=== PATIENT | female | born 1940 | race Caucasian/White ===

== ENCOUNTER 2022-08-23 09:38 | Inpatient (IN) | payer OTHER, MEDICARE ==
[~2022-08-23] VITALS: Ht 185.4 cm; Wt 158.8 kg
[2022-08-23 09:46] VITALS: BP_SYST 109
--- NOTE | 2022-08-23 09:56 | NUR ---
Placed in room 1 . Placed on administrative volunteer, blood pressure machine and pulse oximeter. To gown for exam. Side rails up. Report given to
--- NOTE | 2022-08-23 09:56 | NUR ---
ER at bedside examining patient.
--- NOTE | 2022-08-23 09:57 | NUR ---
PT RETURNS FROM CT.
--- NOTE | 2022-08-23 10:04 | NUR ---
MINA 0700 BS upon arrival 104
[2022-08-23 10:38] LABS: BASOPHILS % (AUTO) 0.5 % (0.0-2.0); EOSINOPHILS # (AUTO) 0.2 K/uL (0.0-0.4); EOSINOPHILS % (AUTO) 3.6 % (0.0-4.0); HEMATOCRIT 47.3 % (36-48); HEMOGLOBIN 15.3 g/dL (12.0-16.0); LYMPHOCYTES # (AUTO) 0.8 K/uL (1.0-5.5); LYMPHOCYTES % (AUTO) 16.5 % (20.5-51.5); MEAN CORPUSCULAR HEMOGLOBIN 33 pg (27-31); MEAN CORPUSCULAR HGB CONC 32 % (32-36); MEAN CORPUSCULAR VOLUME 102 fL (79.0-98.0); MONOCYTES # (AUTO) 0.4 K/uL (0.0-1.0); MONOCYTES % (AUTO) 8.5 % (1.7-9.3); NEUTROPHILS # (AUTO) 3.3 K/uL (1.8-7.7); NEUTROPHILS % (AUTO) 70.9 % (40.0-70.0); PLATELET COUNT (AUTO) 117 K/uL (130-430); RED BLOOD CELL COUNT(AUTO) 4.62 MIL/uL (4.2-6.2); WHITE BLOOD COUNT (AUTO) 4.7 K/uL (4.8-10.8)
[2022-08-23] MEDS ORDERED: ASPIRIN 325 MG TABLET PO ONE (10:45)
[2022-08-23 10:47] LABS: ANION GAP 5 (5-15); CALCIUM 8.4 mg/dL (8.4-11.0); CHLORIDE 100 mmol/L (98-107); CREATININE 1.82 mg/dL (0.55-1.30); GLUCOSE 128 mg/dL (70-99); UREA NITROGEN, BLOOD 52 mg/dL (8-21)
[2022-08-23 10:49] LABS: INR 1.7 (0.8-1.2); PROTHROMBIN TIME 17.1 SECS (9.5-12.5)
[2022-08-23 10:53] LABS: ALANINE AMINOTRANSFERASE 27 U/L (12-78); ALBUMIN 1.7 g/dL (3.4-4.8); ASPARTATE AMINOTRANSFERASE 34 U/L (10-37); TOTAL BILIRUBIN 1.5 mg/dL (0.0-1.0)
[2022-08-23 10:57] LABS: ALCOHOL, BLOOD < 3 mg/dL (<10)
[2022-08-23 11:00] LABS: BILIRUBIN,URINE 2+ (NEGATIVE); BLOOD, URINE 3+ (NEGATIVE); CLARITY/URINE TURBID (CLEAR); COLOR,URINE BROWN (YELLOW); GLUCOSE,URINE NEGATIVE (NEGATIVE); KETONES,URINE TRACE (NEGATIVE); LEUKOCYTE ESTERASE ,URINE 2+ (NEGATIVE); NITRITE, URINE POSITIVE (NEGATIVE); PH,URINE 6.5 (5.0-8.0); PROTEIN URINE 3+ (NEGATIVE)
[2022-08-23 11:12] LABS: UROBILINOGEN,URINE >=8 (0.2-1.0)
[2022-08-23 11:14] LABS: BACTERIA,URINE MANY /HPF (None Seen); HYALINE CASTS, URINE 0-5 /LPF (None Seen); RBC,URINE >100 /HPF (0-3); WBC,URINE >100 /HPF (0-3)
[2022-08-23] MEDS ORDERED: NEU300 PO (11:20)
[2022-08-23] MEDS ORDERED: GLIM4TAB PO (11:20)
[2022-08-23] MEDS ORDERED: NITR-85 PO (11:20)
[2022-08-23] MEDS ORDERED: HYDR-4280 PO (11:20)
[2022-08-23] MEDS ORDERED: FURO-150 PO (11:20)
[2022-08-23] MEDS ORDERED: APIX5TAB PO (11:20)
[2022-08-23 11:21] LABS: BARBITURATE, URINE NEGATIVE (NEG <=200); BENZODIAZEPINE, URINE NEGATIVE (NEG <=150); CANNABINOID, URINE NEGATIVE (NEG <=50); COCAINE, URINE NEGATIVE (NEG <=150); METHAMPHETAMINES SCREEN,URINE NEGATIVE (NEG <=500); OPIATE, URINE POSITIVE (NEG <=100); PHENCYCLIDINE SCREEN,URINE NEGATIVE (NEG <=25); URINE AMPHETAMINE NEGATIVE (NEG <=500); URINE METHADONE NEGATIVE (NEG <=200); URINE OXYCODONE SCREEN NEGATIVE (NEG <=100); URINE PROPOXYPHENE SCREEN NEGATIVE (NEG <=300)
[2022-08-23 11:22] LABS: UR TRICYCLIC ANTIDEPRESSANTS NEGATIVE (NEG <=300)
[2022-08-23] MEDS ORDERED: cefTRIAXone 1 GM IVPB PREMIX 50 ML IV ONE (12:00)
[2022-08-23] MEDS ORDERED: FUROSEMIDE 20 MG/2 ML VIAL IVP ONE (12:15)
[2022-08-23 12:39] VITALS: BP_SYST 109
[2022-08-23] MEDS ORDERED: DEXTROSE 50% JECT 50 ML DISP.SYRIN IVP PRN (12:45)
[2022-08-23] MEDS ORDERED: DOCUSATE SODIUM 100 MG CAPSULE PO PRN (12:45)
[2022-08-23] MEDS ORDERED: NALOXONE HCL 0.4 MG/ML AMP (NARCAN) IVP PRN ×2 (12:45)
[2022-08-23] MEDS ORDERED: ONDANSETRON HCL 4 MG/2 ML VIAL IVP PRN (12:45)
[2022-08-23] MEDS ORDERED: ACETAMINOPHEN 325 MG TABLET PO PRN (12:45)
[2022-08-23] MEDS ORDERED: LORazepam 2 MG/ML VIAL IVP PRN (12:45)
[2022-08-23] MEDS ORDERED: MAGNESIUM SULFATE 50 ML IV PRN (12:45)
[2022-08-23] MEDS ORDERED: IPRATROPIUM/ALBUTEROL SULFATE 3 ML AMPUL.NEB (DUONEB) INH PRN (12:45)
[2022-08-23] MEDS ORDERED: INSULIN LISPRO SLIDING SCALE 100 UNITS/ML, 3 ML VIAL (humaLOG) SUBCUT PRN (12:45)
[2022-08-23] MEDS ORDERED: MUPIROCIN 2% TOPICAL OINTMENT 22 GM NS PRN (12:45)
[2022-08-23] MEDS ORDERED: POTASSIUM CHLORIDE 20 MEQ TAB.PRT.SR PO PRN (12:45)
[2022-08-23] MEDS ORDERED: ZOLPIDEM TARTRATE 5 MG TABLET PO PRN (12:45)
[2022-08-23] MEDS ORDERED: MORPHINE 2 MG/ML INJ. SYRINGE IVP PRN ×2 (12:45)
--- NOTE | 2022-08-23 13:48 | NUR ---
Patient will be admitted to care of DR MATHIAS. Admitted to TELE unit. Will go to room 104A. Belongings list completed. Complete and up to date summary report printed. SBAR report to be given at bedside with opportunity for questions.
--- NOTE | 2022-08-23 14:30 | NUR ---
Admission Pt came to floor via gurney from ED at 1255, report was given to Augustine propellant charge loader. Tele unit was applied on admission to floor. Received report from director fundraising at 1320. Pt was oriented to room and nursing procedures and questions/concerns were answered. Pt has call light within reach and bed in low position and bed alarm on. Side rails raised.
[2022-08-23 14:45] VITALS: BP_SYST 131
[2022-08-23 15:21] VITALS: BP_SYST 104
--- NOTE | 2022-08-23 15:30 | NUR ---
Note Pt's bilateral lower extremities were photographed and documented in chart. Hygiene care and linen changes done with OFFSET PRINTER and RN. Pt's son Richard was at bedside during admission assessment. Call light within reach.
--- NOTE | 2022-08-23 16:25 | NUR ---
NEURO CONSULT WITH DR Tori LI WAS TEXTED, RE: TIA.
[2022-08-23] MEDS: NACL 0.9% 1,000 ML IV SCH (17:10)
--- NOTE | 2022-08-23 19:00 | NUR ---
End of shift Pt sitting up in bed to eat her dinner. Pt was checked on q1' and PRN all shift for needs and care. Pt was maintained with safety precautions all shift. Pt next to nurses station for close observation. Pt's IV in LFA intact and patent infusing IVF's well. Pt has Pure wick for urine incontinence. Pt's bilateral lower extremities dressing CDI at this time and elevated on pillows. No needs noted. Tele unit attached and intact. Call light within reach. Pt has had O2 at 2L/nc all shift.
--- NOTE | 2022-08-23 19:30 | NUR ---
OPENING NOTE PT LYING IN BED AND EYES OPEN. THREE FAMILY MEMBERS ARE BEDSIDE. BREATHING EVEN AND NONLABORED VIA NASAL CANNULAR O2 2L. IV LFA PATENT AND SKIN ECCHYMOSIS. NO S/S ACUTE DISTRESS. REPORTED PAIN ON LEFT LEFT FOOT AND LEG PAIN 7/10. CAN'T TAKE MORPHINE DUE TO LOW BP. PT ASKED TYLENOL INSTEAD. SAFETY CHECKS IN PLACE. CALL LIGHT IN REACH. CONTINUE TO MONITOR
[2022-08-23 20:00] VITALS: BP_SYST 101
[2022-08-23] MEDS: GABAPENTIN 300 MG CAPSULE PO SCH (20:18)
[2022-08-23] MEDS: ACETAMINOPHEN 325 MG TABLET PO PRN (20:20)
[2022-08-23] MEDS: APIXABAN 2.5 MG TABLET PO SCH (20:21)
[2022-08-23 23:23] VITALS: BP_SYST 101
--- NOTE | 2022-08-23 23:40 | NUR ---
ROUNDING NOTE PT LYING IN BED AND EYES CLOSED. BREATHING EVEN AND NONLABORED. PUREWICK COLLECTING URINE. URINE COLOR JOLANTA. NO S/S OF DISTRESS. SAFETY CHECKS IN PLACE. CALL LIGHT IN REACH. CONTINUE TO MONITOR
[2022-08-24 00:36] VITALS: BP_SYST 115
[2022-08-24] MEDS: NACL 0.9% 1,000 ML IV SCH ×2 (03:03→06:43)
--- NOTE | 2022-08-24 04:30 | NUR ---
PAIN MEDICATION PT REPORTED PAIN 7/10 ON LEFT LEG. BP 115/71. STACY LUCAS ADMINISTERED MORPHINE 2mg IVF. WILL CONTINUE TO MONITOR BP.
--- NOTE | 2022-08-24 04:51 | NUR ---
NIH SCALE ASSESSMENT PT COOPERATIVELY PARTICIPATED NIH SCALE TEST. ONLY LOWER EXTREMITIES NO STRENGTH AGAINST GRAVITY DUE TO CHRONIC BILATERAL LOWER EXTREMITIES WEAKNESS AND DIABETIC ULCER. PT SAID SHE HAS BEEN BEDBOUND MORE THAN A YEAR. SAFETY CHECKS IN PLACE. CALL LIGHT IN REACH. CONTINUE TO MONITOR
[2022-08-24 05:03] VITALS: BP_SYST 94
[2022-08-24 06:05] LABS: EOSINOPHILS # (AUTO) 0.3 K/uL (0.0-0.4); EOSINOPHILS % (AUTO) 5.6 % (0.0-4.0); HEMATOCRIT 45.2 % (36-48); HEMOGLOBIN 14.7 g/dL (12.0-16.0); LYMPHOCYTES # (AUTO) 0.6 K/uL (1.0-5.5); LYMPHOCYTES % (AUTO) 12.4 % (20.5-51.5); MEAN CORPUSCULAR HEMOGLOBIN 33 pg (27-31); MEAN CORPUSCULAR HGB CONC 33 % (32-36); MEAN CORPUSCULAR VOLUME 102 fL (79.0-98.0); MONOCYTES # (AUTO) 0.3 K/uL (0.0-1.0); MONOCYTES % (AUTO) 7.5 % (1.7-9.3); NEUTROPHILS # (AUTO) 3.3 K/uL (1.8-7.7); NEUTROPHILS % (AUTO) 73.5 % (40.0-70.0); PLATELET COUNT (AUTO) 109 K/uL (130-430); RED BLOOD CELL COUNT(AUTO) 4.44 MIL/uL (4.2-6.2); RED CELL DISTRIBUTION WIDTH 15.9 % (9.0-15.0); WHITE BLOOD COUNT (AUTO) 4.5 K/uL (4.8-10.8)
[2022-08-24 06:26] LABS: ANION GAP 7 (5-15); CALCIUM 8.2 mg/dL (8.4-11.0); CHLORIDE 102 mmol/L (98-107); CREATININE 1.53 mg/dL (0.55-1.30); GLUCOSE 119 mg/dL (70-99); UREA NITROGEN, BLOOD 49 mg/dL (8-21)
--- NOTE | 2022-08-24 07:40 | NUR ---
CLOSING NOTE PT LYING IN BED AND EYES CLOSED. BREATHING EVEN AND NONLABORED VIA NASAL CANNULAR O2 2L. IV LFA PATENT. NO S/S ACUTE DISTRESS. PAIN RELIEVED BY MORPHINE. SAFETY CHECKS IN PLACE. CALL LIGHT IN REACH. ENDORSED TO DAY SHIFT NURSE
[2022-08-24 07:43] LABS: CHOLESTEROL 108 mg/dL (<200); HDL CHOLESTEROL 26 mg/dL (>55); TRIGLYCERIDES 114 mg/dL (30-150)
--- NOTE | 2022-08-24 07:45 | NUR ---
OPENING NOTE; PT RESTING BED, BREATHING ON2L 02 VIA NC. DENIES ANY ACUTE DISTRESS, SOB, OR PAIN. PLEASANT.IVF RUNNING ORDERED. IV SITE REMAIN INTACT AND PATENT. NO IV INFILTRATION OR INFECTION NOTED. BED IS LOCKED AND AT LOW POSITION. CALL LIGHT WITHIN REACH. SAFETY PRECAUTION IN PLACE. WILL CONT TO MONITOR FOR ANY CHANGES
[2022-08-24 08:00] VITALS: BP_SYST 138
[2022-08-24] MEDS: GABAPENTIN 300 MG CAPSULE PO SCH ×2 (08:06→21:15)
[2022-08-24] MEDS: ASPIRIN 81 MG TABLET(ECOTRIN) PO SCH (08:06)
[2022-08-24] MEDS: APIXABAN 2.5 MG TABLET PO SCH ×2 (08:08→21:15)
--- NOTE | 2022-08-24 09:20 | NUR ---
MD ROUNDS; AT BEDSIDE, ASSESSING PT
--- NOTE | 2022-08-24 09:39 | NUR ---
MD ROUNDS; AT BEDSIDE, ASSESSING PT
--- NOTE | 2022-08-24 10:02 | NUR ---
CONSULTATION PAGED/CALLED Reason for Consultation: TIA Person Who was Notified: Dr. Farooq made aware Consulting Physician: Dr. Farooq Rug Cleaner Specialty: Neuro Ordering Physician: Julio Addendum: 08/24/22 at 1433 by Salma Perez LVN wrong patient
--- NOTE | 2022-08-24 10:14 | NUR ---
CONSULTATION PAGED/CALLED Reason for Consultation: [] AFIB Person Who was Notified: [] DR BENAVIDEZ Consulting Physician: [] DR BENAVIDEZ Stock Car Driver Specialty: [] CARDIO Ordering Physician: [] DR MATHIAS
[2022-08-24] MEDS ORDERED: FUROSEMIDE 40 MG/4 ML VIAL IVP ONE (10:30)
[2022-08-24 11:25] VITALS: BP_SYST 94
[2022-08-24] MEDS: cefTRIAXone 1 GM in D5W 50 ML IV SCH (11:43)
--- NOTE | 2022-08-24 13:00 | NUR ---
NOTES; PT RESTING IN BED, DENIES ANY ACUTE DISTRESS, SOB OR PAIN. WILL CONT TO MONITOR FOR ANY CHANGES
[2022-08-24] MEDS: ACETAMINOPHEN 325 MG TABLET PO PRN (13:02)
--- NOTE | 2022-08-24 14:05 | NUR ---
Wound Care Consult: Wound Consult ordered by Dr. Rachid Kim. Thank you, Dr. Kim, for the consult. Patient received in a [place] Bed with an IsoFlex BRANDY low air-loss mattress. Past Medical History: Diabetes Mellitus, Hypertension, Thyroid Disease, bedbound, mild CHF, chronic lower extremity Venous Stasis Ulcers, Neuropathy. Admitted for slurred speech and weakness in the left arm, and was found to be in uncontrolled AFib with RVR in the ER. Labs: WBC 4.5, RBC 4.44, hemoglobin 14.7, hematocrit 45.2, platelets 109, sodium 133, BUN 49, creatinine 1.53, glucose 119, calcium 8.2, BNP 170, PT 17.1, INR 1.7. Intrinsic Factors that delay wound healing: Diabetes Mellitus, mild CHF, chronic lower extremity Venous Stasis Ulcers, Neuropathy. Extrinsic factors that decrease wound healing: decreased mobility. Blood Culture results x 2 in progress. Urine culture results in progress. Wound Assessment: 1) Right Distal Lateral Anterior Alba: Venous insufficiency ulcer, present on admission. Wound bed has 100% pink tissue. No odor, no drainage. Periwound intact. Surrounding tissue has dry flaky scaly skin. Wound measures 0.7 cm x 0.5 cm. 2) Right Distal Lower Extremity, superior and lateral to Site 1: Venous insufficiency ulcer, present on admission. Wound bed has 10% red tissue, 90% yellow eschar. No odor, scant sanguineous drainage. Periwound intact. Surrounding tissue has dry flaky scaly skin. Wound measures 1.2 cm x 2.9 cm. 3) Right Distal Lower Extremity, superior to Site 2: Venous insufficiency ulcer, present on admission. Wound bed has 10% pink tissue, 30% red tissue, 60% yellow tissue. No odor, scant yellow drainage. Periwound intact. Surrounding tissue has dry flaky scaly skin. Wound measures 4.0 cm x 2.8 cm. 4) Right Anterior Lateral Alba: Venous insufficiency ulcer, present on admission. Wound bed has 10% black tissue, 10% red tissue, 10% white tissue, 70% pink tissue. No odor, scant sanguineous drainage. Periwound intact. Surrounding tissue has dry flaky scaly skin. Wound measures 3.4 cm x 4.0 cm. 5) Right Lower Extremity, superior and medial to Site 3: Venous insufficiency ulcer, present on admission. Wound bed has 70% pink tissue, 10% dark red tissue, 20% black eschar. No odor, scant sanguineous drainage. Periwound intact. Surrounding tissue has dry flaky scaly skin. Wound measures 4.0 cm x 4.0 cm. 6) Right Distal Lateral Lower Extremity, superior to the Malleolus: Venous insufficiency ulcer, present on admission. Wound bed has 100% pink tissue. No odor, no drainage. Periwound intact. Surrounding tissue has dry flaky scaly skin. Wound measures 0.8 cm x 1.0 cm. 7) Right Anterior Lateral Lower Extremity, superior to Site 6: Venous insufficiency ulcer, present on admission. Wound bed has 100% red tissue. No odor, scant sanguineous drainage. Periwound intact. Surrounding tissue has dry flaky scaly skin. Wound measures 2.0 cm x 2.0 cm. 8) Right Anterior Medial Alba: Venous insufficiency ulcer, present on admission. Wound bed has 10% black eschar, 10% yellow tissue, 80% dark red tissue. No odor, scant sanguineous drainage. Periwound intact. Surrounding tissue has dry flaky scaly skin. Wound measures 2.6 cm x 1.9 cm. 9) Right Posterior Medial Calf: Venous insufficiency ulcer, present on admission. Wound bed has 15% black eschar, 85% pink tissue. No odor, scant sanguineous drainage. Periwound intact. Surrounding tissue has dry flaky scaly skin. Wound measures 1.0 cm x 1.2 cm. Recommend: Cleanse wounds with normal saline. Apply moisture barrier cream to periwound. Apply Venelex ointment to wound beds. Cover with nonadhesive foam dressings. Wrap with Raymond wrap and secure with tape perform wound care daily, and as needed for dressing soiling or dislodgment. 10) Left Anterior Alba: Venous insufficiency ulcer, present on admission. Wound bed has 90% yellow slough, 10% dull red tissue. No odor, scant sanguinous drainage. Periwound intact. Wound measures 1.0 cm x 0.8 cm. 11) Left Lower Extremity, superior to site 10: Venous insufficiency ulcer, present on admission. Wound bed has 90% yellow slough, 10% dull red tissue. No odor, no drainage. Periwound intact. Wound measures 1.8 cm x 1.6 cm. 12) Left Lower Extremity, Left Lateral to Site 11: Venous insufficiency ulcer, present on admission. Wound bed has 85% yellow slough, 15% dull red tissue. No odor, no drainage. Periwound intact. Wound measures 3.3 cm x 2.5 cm. 13) Left Anterior Medial Alba, Proximal One Third of Extremity Below The Knee: Venous insufficiency ulcer, present on admission. Wound bed has 5% dull red tissue, 10% dark yellow slough, 85% light yellow slough. No odor, no drainage. Periwound intact. Wound measures 1.0 cm x 0.8 cm. 14) Left Distal Lateral Lower Extremity Venous insufficiency ulcer, present on admission. Wound bed has 10% dark yellow tissue, 5% dark red tissue, 85% light yellow tissue. Wound measures 4.5 cm x 5.0 cm. 15) Left lateral lower extremity, superior to site 14: Venous insufficiency ulcer, present on admission. Wound bed has 100% pink tissue. No odor, no drainage. Periwound intact. Wound measures 1.0 cm x 0.5 cm. 16) Left Anterior Medial Lower Extremity: Venous insufficiency ulcer, present on admission. Wound bed has 100% dull red tissue. No odor, no drainage. Periwound intact. Wound measures 2.8 cm x 2.4 cm. 17) Left Lower Extremity, superior to Site 16: Venous insufficiency ulcer, present on admission. Wound bed has 100% dull red tissue. No odor, small sanguineous drainage. Periwound intact. Wound measures 1.2 cm x 0.8 cm. 18) Left Lower Extremity, superior to Site 17: Venous insufficiency ulcer, present on admission. Wound bed has 5% dull red tissue, 30% black eschar, 65% yellow slough. No odor, small sanguineous drainage. Periwound intact. Wound measures 0.9 cm x 0.5 cm. Recommend: Cleanse wounds with normal saline. Apply moisture barrier cream to periwounds. Apply Venelex ointment to wound beds. Cover with nonadhesive foam dressings. Wrap with Raymond wrap and secure with tape perform wound care daily, and as needed for dressing soiling or dislodgment. 19) Left Lateral Foot: Venous insufficiency ulcer, present on admission. Wound bed has 70% yellow slough, 30% light pink tissue. No odor, no drainage. Periwound intact. Wound measures 1.5 cm x 3.0 cm. Recommend: Cleanse wound with normal saline. Apply moisture barrier cream to periwound. Apply Venelex ointment to wound bed. Cover with adhesive foam dressing. Wrap with same Raymond wrap and secure with same tape as used in Sites 10-19. Perform wound care daily, and as needed for dressing soiling or dislodgment. Also recommend: Encourage and assist patient with repositioning every two hours with pillow support, and off-load heels and pressure areas with pillows for pressure re-distribution. Perform skin care and monitor skin integrity q shift. Elevate bilateral lower extremities and heels with one pillow lengthwise under each extremity at all times.
--- NOTE | 2022-08-24 14:37 | NUR ---
Patient is on service with [facility] [phone].
--- NOTE | 2022-08-24 15:00 | NUR ---
NOTES; WOUND CARE PROVIDED WITH WOUND CARE NURSE. PT TOLERATED WELL
[2022-08-24 15:32] VITALS: BP_SYST 97
--- NOTE | 2022-08-24 17:30 | NUR ---
NOTES; PT FAMILY AT BEDSIDE, WANTS TO KNOW THE RESULT OF TESTS. WILL HAVE TO TALK TO THEM
--- NOTE | 2022-08-24 18:00 | NUR ---
ROUND; AT BEDSIDE, EXPLAINING PATIENT AND FAMILY REGARDING THE RESULTS.
--- NOTE | 2022-08-24 18:48 | NUR ---
CLOSING NOTE; PT RESTING BED, BREATHING ON2L 02 VIA NC. DENIES ANY ACUTE DISTRESS, SOB, OR PAIN. PLEASANT.IVF RUNNING ORDERED. IV SITE REMAIN INTACT AND PATENT. NO IV INFILTRATION OR INFECTION NOTED. SONS AT BEDSIDE. BED IS LOCKED AND AT LOW POSITION. CALL LIGHT WITHIN REACH. SAFETY PRECAUTION IN PLACE. WILL ENDORSE CARE TO NIGHT NURSE.
[2022-08-24 19:30] VITALS: BP_SYST 107
--- NOTE | 2022-08-24 19:30 | NUR ---
PM ASSESSMENT; -Patient is awake, alert, oriented X 4. Pt denies any chest pain,sob,pain,or any acute distress. IV site patent, no s/s any infiltration noted. Discussed poc,all safety measures with pt & family at bedside, they verbalized understanding. Patient oriented to hospital room, call light, toileting, pain management and safety-teach back done. Bed alarmed,side rail x2,Call light within reach. Cont to monitor pt.
[2022-08-24] MEDS: AMMONIUM LACTATE 226 GM LOTION TP SCH (21:15)
--- NOTE | 2022-08-25 | NUR ---
ROUNDS; -Pt is asleep. No s/s any sob,or any acute distress noted. All safety measures in place, side rails x3, bed alarmed. Call light w/in reach. Cont to monitor pt.
[2022-08-25 00:28] VITALS: BP_SYST 114
--- NOTE | 2022-08-25 02:50 | NUR ---
NOTES; PLACED PATIENT ON SPECIAL AIR MATTRESS -Pt denies any chest pain,pain,sob,or any acute distress. All safety measures in place, side rails x3, bed alarmed. Call light w/in reach. Cont to monitor pt.
[2022-08-25 06:34] LABS: BASOPHILS % (AUTO) 0.6 % (0.0-2.0); EOSINOPHILS # (AUTO) 0.2 K/uL (0.0-0.4); EOSINOPHILS % (AUTO) 4.6 % (0.0-4.0); HEMATOCRIT 45.8 % (36-48); HEMOGLOBIN 14.9 g/dL (12.0-16.0); LYMPHOCYTES # (AUTO) 0.6 K/uL (1.0-5.5); LYMPHOCYTES % (AUTO) 11.6 % (20.5-51.5); MEAN CORPUSCULAR HEMOGLOBIN 34 pg (27-31); MEAN CORPUSCULAR HGB CONC 33 % (32-36); MEAN CORPUSCULAR VOLUME 103 fL (79.0-98.0); MONOCYTES # (AUTO) 0.4 K/uL (0.0-1.0); MONOCYTES % (AUTO) 9.2 % (1.7-9.3); NEUTROPHILS # (AUTO) 3.6 K/uL (1.8-7.7); PLATELET COUNT (AUTO) 117 K/uL (130-430); RED BLOOD CELL COUNT(AUTO) 4.45 MIL/uL (4.2-6.2); RED CELL DISTRIBUTION WIDTH 15.7 % (9.0-15.0); WHITE BLOOD COUNT (AUTO) 4.8 K/uL (4.8-10.8)
--- NOTE | 2022-08-25 06:36 | NUR ---
CLOSING NOTES; -Pt is resting in bed comfortably. No s/s any pain,sob,or any acute distress noted. Pt's condition stable. All safety measures in place. Bed alarmed,side rail x3,Call light within reach. will endorse to next nurse to continuity of care.
[2022-08-25 07:06] LABS: ANION GAP 7 (5-15); CALCIUM 7.9 mg/dL (8.4-11.0); CHLORIDE 101 mmol/L (98-107); CREATININE 1.47 mg/dL (0.55-1.30); GLUCOSE 94 mg/dL (70-99); UREA NITROGEN, BLOOD 43 mg/dL (8-21)
--- NOTE | 2022-08-25 07:20 | NUR ---
rn opening note report was endorsed by night nurse. patient is awake and alert sitting up in bed. no complaints at this time. call light is with her educated to use for assistance.
[2022-08-25 08:00] VITALS: BP_SYST 106; BP_SYST 116
[2022-08-25] MEDS: APIXABAN 2.5 MG TABLET PO SCH ×2 (09:20→22:51)
[2022-08-25] MEDS: GABAPENTIN 300 MG CAPSULE PO SCH ×2 (09:21→22:50)
[2022-08-25] MEDS: ASPIRIN 81 MG TABLET(ECOTRIN) PO SCH (09:21)
[2022-08-25] MEDS: BALSAM PERU/CASTOR OIL 56.7 GM OINT...G. TP SCH (09:23)
[2022-08-25] MEDS: NACL 0.9% 1,000 ML IV SCH ×2 (09:24→22:52)
[2022-08-25] MEDS: AMMONIUM LACTATE 226 GM LOTION TP SCH ×2 (09:25→22:52)
[2022-08-25] MEDS: FUROSEMIDE 40 MG/4 ML VIAL IVP SCH (09:29)
--- NOTE | 2022-08-25 09:35 | NUR ---
medication patient states she wants to leave as soon as her family comes in to visit. she states she will sign ama form. educated her that its [facility] medical advise she states she is aware but wants to leave. medication given per order. patient educated chronograph operator light for assistance. call light is with her. no other needs at this time.
--- NOTE | 2022-08-25 10:21 | NUR ---
Dietitian Recommendations * Continue [facility] diet * Ordered Teddy BID * Recommend MVI, 500mg VIT C, 220mg ZnSO4 x 14 days for wounds GS, MPH, RD Please refer to RD Assessment for further details. Thanks! Addendum: 08/25/22 at [address] Amended: Links added.
[2022-08-25] MEDS: cefTRIAXone 1 GM in D5W 50 ML IV SCH (11:27)
[2022-08-25] MEDS: ACETAMINOPHEN 325 MG TABLET PO PRN (11:29)
--- NOTE | 2022-08-25 11:31 | NUR ---
MEDICATION/ACCU CHECK PATIENTS ACCU CHECK DONE NO COVERAGE NEEDED. PATIENTS FAMILY IS AT BEDSIDE. FAMILY BROUGHT HER LUNCH IS EATING PROVIDED WITH ORANGE JUICE. PATIENT COMPLAINS OF PAIN MEDICATED PER ORDER. EDUCATED TUBE TRAILER FILLER LIGHT FOR ASSISTANCE. CALL LIGHT IS WITH HER. NO OTHER NEEDS AT THIS TIME.
[2022-08-25 13:46] VITALS: BP_SYST 97
--- NOTE | 2022-08-25 15:00 | NUR ---
md Spoke with md covering for states he will speak with neuro to see if she is cleared for discharge. Patient is awake and alert states she is waiting for discharge order. son is at bedside. educated director loss prevention light for assistance. call light is with her. no other needs at this time.
[2022-08-25 16:00] VITALS: BP_SYST 102
[2022-08-25] MEDS ORDERED: Aspirin Ec PO (17:17)
[2022-08-25] MEDS ORDERED: AMOX-423 PO (17:21)
--- NOTE | 2022-08-25 17:54 | NUR ---
ACCU CHECK DONE NO COVERAGE NEEDED.PATIENT IS ON OXYGEN INFORMED THAT DOES NOT HAVE ANY AT HOME.MD SATES OK TO PLACE ORDERS FOR OXYGEN AT HOME. ABG ON ROOM AIR.PATIENT HAS FAMILY AT BED SIDE. NO OTHER NEEDS AT THIS TIME. CALL LIGHT IS WITH HER EDUCATED TO USE CALL LIGHT FOR ASSISTANCE.MD IS AWARE THAT UNABLE TO DISCHARGE DUE TO NEED FOR A SPECIAL AMBULANCE DUE TO PATIENTS SIZE.
--- NOTE | 2022-08-25 19:04 | NUR ---
rn closing note report was endorsed to night nurse. patient is awake and alert sitting up in bed. family is at bed side. educated application designer light for assistance. call light is with her. patient is also close to nurses station. no other needs at this time.
[2022-08-25 19:30] VITALS: BP_SYST 88
[2022-08-26 00:07] VITALS: BP_SYST 117
[2022-08-26 06:55] LABS: ANION GAP 5 (5-15); CALCIUM 7.5 mg/dL (8.4-11.0); CHLORIDE 103 mmol/L (98-107); CREATININE 1.24 mg/dL (0.55-1.30); GLUCOSE 94 mg/dL (70-99); UREA NITROGEN, BLOOD 37 mg/dL (8-21)
[2022-08-26 07:23] LABS: BASOPHILS % (AUTO) 0.7 % (0.0-2.0); EOSINOPHILS # (AUTO) 0.2 K/uL (0.0-0.4); EOSINOPHILS % (AUTO) 4.7 % (0.0-4.0); HEMATOCRIT 43.4 % (36-48); HEMOGLOBIN 14.2 g/dL (12.0-16.0); LYMPHOCYTES # (AUTO) 0.5 K/uL (1.0-5.5); LYMPHOCYTES % (AUTO) 10.5 % (20.5-51.5); MEAN CORPUSCULAR HEMOGLOBIN 33 pg (27-31); MEAN CORPUSCULAR HGB CONC 33 % (32-36); MEAN CORPUSCULAR VOLUME 102 fL (79.0-98.0); MONOCYTES # (AUTO) 0.5 K/uL (0.0-1.0); NEUTROPHILS # (AUTO) 3.3 K/uL (1.8-7.7); NEUTROPHILS % (AUTO) 73.1 % (40.0-70.0); RED BLOOD CELL COUNT(AUTO) 4.26 MIL/uL (4.2-6.2); RED CELL DISTRIBUTION WIDTH 15.9 % (9.0-15.0); WHITE BLOOD COUNT (AUTO) 4.4 K/uL (4.8-10.8)
--- NOTE | 2022-08-26 07:30 | NUR ---
RN OPENING NOTE REPORT WAS ENDORSED BY NIGHT. PATIENT IS APPEARS TO BE RESTING WITH BOTH EYES CLOSED NO SIGNS OF ANY DISTRESS. BREATHING IS EQUAL AND NON LABORED. PATIENT IS CLOSE TO NURSES STATION. NO OTHER NEEDS AT THIS TIME.
[2022-08-26 08:05] VITALS: BP_SYST 104
[2022-08-26] MEDS: GABAPENTIN 300 MG CAPSULE PO SCH (09:26)
[2022-08-26] MEDS: ASPIRIN 81 MG TABLET(ECOTRIN) PO SCH (09:27)
[2022-08-26] MEDS: APIXABAN 2.5 MG TABLET PO SCH (09:28)
[2022-08-26] MEDS: AMMONIUM LACTATE 226 GM LOTION TP SCH (09:29)
[2022-08-26] MEDS: BALSAM PERU/CASTOR OIL 56.7 GM OINT...G. TP SCH (09:30)
[2022-08-26] MEDS: FUROSEMIDE 40 MG/4 ML VIAL IVP SCH (09:32)
--- NOTE | 2022-08-26 10:25 | NUR ---
Opening pt is awake alert orented x4, ishe is calm and cooperitive, no hand tremors noticed at this time, pt has no c/o pain at this time, call light within reach, pt instructed to call for any needs.
--- NOTE | 2022-08-26 10:28 | NUR ---
medication routine medication given at this time, no needs, call light with in reach
--- NOTE | 2022-08-26 10:33 | NUR ---
CM: Home O2: faxed order and referral package to [employer] fax # [phone], tel [phone]. Addendum: 08/26/22 at 1213 by Ghada Salomon RN Per Deangelo, the delivery crew will be at the pt's home by 3 pm to drop off the home o2 equipment. -- edwina Alvarado.
[2022-08-26] MEDS: NACL 0.9% 1,000 ML IV SCH (11:38)
[2022-08-26] MEDS: cefTRIAXone 1 GM in D5W 50 ML IV SCH (11:39)
--- NOTE | 2022-08-26 11:41 | NUR ---
MEDICATION PATIENTS SCHEDULED MEDICATION GIVEN PER ORDER.PATIENTS ACCU CHECK DONE NO COVERAGE NEEDED.PATIENT IS SITTING UP IN BED. EDUCATED ORTHODONTIC LABORATORY TECHNICIAN LIGHT FOR ASSISTANCE. CALL LIGHT IS WITH HER.
--- NOTE | 2022-08-26 11:55 | NUR ---
CM: Informed son, Christiano re discharge pt to home and the possible extra fee for ambulance crew to service the bariatric patient. Christiano agreed with the extra payment . He aware that the tube dispatcher will be calling him for the credit care prepayment. >> Ambulance: Booked [facility] ambulance with Rashaun for 5 pm diamond picker # [phone]. Rashaun will call Christiano for the second crew cost. Shanell KUMAR aware. Addendum: 08/26/22 at 1212 by Ghada Salomon RN Confirmation from [place]ldon, [email or web address] for the extra fee mentioned above. He aware that the ambulance will diamond picker pt at 5 pm from [facility].
[2022-08-26 12:01] VITALS: BP_SYST 119; BP_SYST 126
--- NOTE | 2022-08-26 13:00 | NUR ---
hygine pt washed, bedding changed, pt comfortable no c/o pain, call light within reach
[2022-08-26 13:10] LABS: PLATELET COUNT (AUTO) 97 K/uL (130-430)
--- NOTE | 2022-08-26 16:00 | NUR ---
wound care dressings changed on lower legs as per orders, wound barrier cream applied under breast to minimise moist areas, photos taken of all open wounds,bedding changed, gown changed, pt comfortble, no c/o pain. family at bedside, call light with in reach
[2022-08-26 16:44] VITALS: BP_SYST 119
[2022-08-26 17:16] VITALS: BP_SYST 130
--- NOTE | 2022-08-26 17:30 | NUR ---
Discharge pt discharged to home, pt left via ambulance, family present, all d/c orders gone over with pt, pt given d/c paperwork. pt verbalizes acknowledgement of d/c orders. pt had no c/o discomfort before discharge, iv hep lock removed prior to d/c Addendum: 08/26/22 at 1946 by Shanell Salazar RN IV CATHETER INTACT APPLIED GAUZE AND TAPE TO INSERTION SITE.
== END 2022-08-26 17:10 | disposition home health service (06) | DRG 73 ==
LOC: SED 09:38 → STU 11:52
PROVIDERS: ADMIT General Practice; ATTEND General Practice
DX: G90.8 Other disorders of autonomic nervous system (principal); N17.0 Acute kidney failure with tubular necrosis; I48.20 Chronic atrial fibrillation, unspecified; G45.9 Transient cerebral ischemic attack, unspecified; E44.0 Moderate protein-calorie malnutrition; E87.1 Hypo-osmolality and hyponatremia; L97.929 Non-pressure chronic ulcer of unspecified part of left lower leg with unspecified severity; L97.919 Non-pressure chronic ulcer of unspecified part of right lower leg with unspecified severity; Z68.42 Body mass index [BMI] 45.0-49.9, adult; I13.0 Hypertensive heart and chronic kidney disease with heart failure and stage 1 through stage 4 chronic kidney disease, or unspecified chronic kidney disease; N18.4 Chronic kidney disease, stage 4 (severe); N39.0 Urinary tract infection, site not specified; E66.01 Morbid (severe) obesity due to excess calories; I87.8 Other specified disorders of veins; I27.20 Pulmonary hypertension, unspecified; I50.9 Heart failure, unspecified; E11.22 Type 2 diabetes mellitus with diabetic chronic kidney disease; E03.9 Hypothyroidism, unspecified; Z74.01 Bed confinement status; Z79.01 Long term (current) use of anticoagulants; Z79.84 Long term (current) use of oral hypoglycemic drugs; Z79.899 Other long term (current) drug therapy; Z87.440 Personal history of urinary (tract) infections
CPT/HCPCS: 36415; 36600; 70450-TC; 71045; 76376; 80048; 80053; 80061; 80307; 81000; 82803; 83037; 83605; 83735; 83880; 84484; 85025; 85610-TC; 85730-TC; 87040; 87086; 93306; 93880; 94760; 96365; 96375; 99285; G0378; G0482; J0696; J1940; J2270; J7060

== ENCOUNTER 2022-10-12 21:09 | Inpatient (IN) | payer OTHER, MEDICARE ==
[~2022-10-12] VITALS: Ht 185.4 cm; Wt 158.3 kg
[~2022-10-12 21:09] MED LIST: AMOX-423 PO; APIX5TAB PO; Aspirin Ec PO; FURO-150 PO; GLIM4TAB PO; HYDR-4280 PO; NEU300 PO
[2022-10-12 21:20] VITALS: BP_SYST 139; PULSE 100; RESP 19; TEMP 98; O2SAT 99
[2022-10-12 22:28] LABS: BASOPHILS % (AUTO) 0.4 % (0.0-2.0); EOSINOPHILS # (AUTO) 0.1 K/uL (0.0-0.4); EOSINOPHILS % (AUTO) 1.3 % (0.0-4.0); HEMOGLOBIN 13.8 g/dL (12.0-16.0); LYMPHOCYTES # (AUTO) 0.9 K/uL (1.0-5.5); LYMPHOCYTES % (AUTO) 15.4 % (20.5-51.5); MEAN CORPUSCULAR HEMOGLOBIN 32 pg (27-31); MEAN CORPUSCULAR HGB CONC 32 % (32-36); MEAN CORPUSCULAR VOLUME 103 fL (79.0-98.0); MONOCYTES # (AUTO) 0.6 K/uL (0.0-1.0); MONOCYTES % (AUTO) 10.3 % (1.7-9.3); NEUTROPHILS # (AUTO) 4.4 K/uL (1.8-7.7); NEUTROPHILS % (AUTO) 72.6 % (40.0-70.0); PLATELET COUNT (AUTO) 124 K/uL (130-430); RED BLOOD CELL COUNT(AUTO) 4.28 MIL/uL (4.2-6.2); RED CELL DISTRIBUTION WIDTH 15.3 % (9.0-15.0)
[2022-10-12 22:55] LABS: ALANINE AMINOTRANSFERASE 14 U/L (12-78); ALBUMIN 1.8 g/dL (3.4-4.8); ASPARTATE AMINOTRANSFERASE 35 U/L (10-37); CALCIUM 8.1 mg/dL (8.4-11.0); CREATININE 1.12 mg/dL (0.55-1.30); GLUCOSE 149 mg/dL (74-106); TOTAL BILIRUBIN 1.4 mg/dL (0.0-1.0); TOTAL PROTEIN, SERUM 6.8 g/dL (6.4-8.3); UREA NITROGEN, BLOOD 18 mg/dL (8-21)
[2022-10-12 23:00] LABS: CHLORIDE 94 mmol/L (98-107); SODIUM SERUM 134 mmol/L (136-145)
[2022-10-12 23:03] LABS: ANION GAP < 3 (5-15); CARBON DIOXIDE 42 mmol/L (23-29)
[2022-10-12] MEDS ORDERED: FUROSEMIDE 40 MG/4 ML VIAL IVP ONE (23:30)
[2022-10-12] MEDS ORDERED: IPRATROPIUM/ALBUTEROL SULFATE 3 ML AMPUL.NEB (DUONEB) INH PRN (23:45)
[2022-10-13] VITALS (13 sets, daily range): BP systolic 100–139; PULSE 76–126; RESP 15–20; TEMP 96–97.6; O2SAT 92–100
[2022-10-13] MEDS ORDERED: INSULIN REGULAR, HUMAN 100 UNITS/ML, 3 ML VIAL (humuLIN R) SUBCUT SCH (07:00)
[2022-10-13] MEDS ORDERED: ASPIRIN 81 MG TABLET(ECOTRIN) PO ONE (09:15)
[2022-10-13] MEDS ORDERED: GABAPENTIN 300 MG CAPSULE PO ONE (09:15)
[2022-10-13] MEDS ORDERED: GLIMEPIRIDE 2 MG TABLET PO ONE (09:15)
[2022-10-13] MEDS ORDERED: FUROSEMIDE 20 MG/2 ML VIAL IVP ONE (09:30)
[2022-10-13] MEDS: GABAPENTIN 300 MG CAPSULE PO SCH ×2 (10:03→21:27)
[2022-10-13] MEDS: FUROSEMIDE 20 MG/2 ML VIAL IVP SCH ×2 (10:04→21:24)
[2022-10-13 10:35] LABS: FREE T4 (FREE THYROXINE) 1.3 ng/dL (0.6-1.6); THYROID STIMULATING HORMONE 3.95 uIu/mL (0.34-4.82)
[2022-10-13] MEDS: IPRATROPIUM BROM 0.5 MG/2.5 ML VIAL.NEB (ATROVENT) INH SCH ×4 (11:21→23:00)
[2022-10-13] MEDS ORDERED: INSULIN REGULAR, HUMAN 100 UNITS/ML, 3 ML VIAL (humuLIN R) SUBCUT PRN (11:30)
[2022-10-13] MEDS ORDERED: BISACODYL 5 MG TABLET.DR (DULCOLAX) PO PRN (11:30)
[2022-10-13] MEDS ORDERED: DOCUSATE SODIUM 250 MG CAPSULE PO ONE (11:30)
[2022-10-13] MEDS ORDERED: APIXABAN 2.5 MG TABLET PO ONE (11:45)
[2022-10-13 12:06] LABS: BILIRUBIN,URINE NEGATIVE (NEGATIVE); BLOOD, URINE 2+ (NEGATIVE); CLARITY/URINE TURBID (CLEAR); COLOR,URINE YELLOW (YELLOW); GLUCOSE,URINE NEGATIVE (NEGATIVE); KETONES,URINE NEGATIVE (NEGATIVE); LEUKOCYTE ESTERASE ,URINE 3+ (NEGATIVE); NITRITE, URINE POSITIVE (NEGATIVE); PROTEIN URINE 1+ (NEGATIVE)
[2022-10-13 12:08] LABS: BACTERIA,URINE MODERATE /HPF (None Seen); RBC,URINE 20-50 /HPF (0-3); WBC,URINE >100 /HPF (0-3)
[2022-10-13] MEDS: APIXABAN 2.5 MG TABLET PO SCH (21:25)
[2022-10-13] MEDS: DOCUSATE SODIUM 250 MG CAPSULE PO SCH (21:27)
[2022-10-14] VITALS (14 sets, daily range): BP systolic 87–117; PULSE 78–108; RESP 14–18; TEMP 97–97.9; O2SAT 95–100
[2022-10-14] MEDS: IPRATROPIUM BROM 0.5 MG/2.5 ML VIAL.NEB (ATROVENT) INH SCH ×6 (03:30→23:46)
[2022-10-14 06:16] LABS: BASOPHILS % (AUTO) 0.3 % (0.0-2.0); EOSINOPHILS # (AUTO) 0.1 K/uL (0.0-0.4); HEMATOCRIT 40.4 % (36-48); HEMOGLOBIN 12.9 g/dL (12.0-16.0); LYMPHOCYTES # (AUTO) 0.6 K/uL (1.0-5.5); LYMPHOCYTES % (AUTO) 13.2 % (20.5-51.5); MEAN CORPUSCULAR HEMOGLOBIN 33 pg (27-31); MEAN CORPUSCULAR HGB CONC 32 % (32-36); MEAN CORPUSCULAR VOLUME 102 fL (79.0-98.0); MONOCYTES # (AUTO) 0.5 K/uL (0.0-1.0); MONOCYTES % (AUTO) 10.7 % (1.7-9.3); NEUTROPHILS # (AUTO) 3.2 K/uL (1.8-7.7); NEUTROPHILS % (AUTO) 72.8 % (40.0-70.0); PLATELET COUNT (AUTO) 135 K/uL (130-430); RED BLOOD CELL COUNT(AUTO) 3.96 MIL/uL (4.2-6.2); RED CELL DISTRIBUTION WIDTH 15.3 % (9.0-15.0); WHITE BLOOD COUNT (AUTO) 4.4 K/uL (4.8-10.8)
[2022-10-14] MEDS: LEVOTHYROXINE SODIUM 0.1 MG TABLET PO SCH (06:31)
[2022-10-14] MEDS ORDERED: GLIMEPIRIDE 2 MG TABLET PO SCH (07:00)
[2022-10-14 07:15] LABS: ALANINE AMINOTRANSFERASE 1 U/L (12-78); ALBUMIN 1.7 g/dL (3.4-4.8); ANION GAP -4 (5-15); ASPARTATE AMINOTRANSFERASE 31 U/L (10-37); CALCIUM 8.2 mg/dL (8.4-11.0); CHLORIDE 97 mmol/L (98-107); CHOLESTEROL 109 mg/dL (<200); CREATININE 1.11 mg/dL (0.55-1.30); GLUCOSE 105 mg/dL (74-106); HDL CHOLESTEROL 34 mg/dL (>55); PHOSPHORUS 3.5 mg/dL (2.7-4.5); POTASSIUM 4.2 mmol/L (3.5-5.1); SODIUM SERUM 138 mmol/L (136-145); THYROID STIMULATING HORMONE 5.47 uIu/mL (0.34-4.82); TOTAL BILIRUBIN 1.3 mg/dL (0.0-1.0); TRIGLYCERIDES 111 mg/dL (30-150); UREA NITROGEN, BLOOD 19 mg/dL (8-21)
[2022-10-14 07:18] LABS: CARBON DIOXIDE 45 mmol/L (23-29)
[2022-10-14] MEDS ORDERED: ASPIRIN 81 MG TABLET(ECOTRIN) PO SCH (09:00)
[2022-10-14] MEDS: FUROSEMIDE 20 MG/2 ML VIAL IVP SCH ×2 (09:28→21:39)
[2022-10-14] MEDS: DOCUSATE SODIUM 250 MG CAPSULE PO SCH ×2 (09:28→21:39)
[2022-10-14] MEDS: APIXABAN 2.5 MG TABLET PO SCH ×2 (09:30→21:38)
[2022-10-14] MEDS ORDERED: NS 250 ML IV ONE (12:15)
[2022-10-14 18:48] LABS: TOTAL VOLUME 24HRS,URINE 800 mL
[2022-10-14 18:49] LABS: TPROTEIN U,24HR 262.4 mg/24HR (0-130)
[2022-10-14 18:50] LABS: CREATININE,URINE 41.6 MG/DL (30-125)
[2022-10-14 18:54] LABS: BODY SURFACE AREA 2.7; CREATININE CLEARANCE,URINE 13.5 ml/min (80-120); PATIENT HEIGHT 73 INCHES; PATIENT WEIGHT 349 LBS
[2022-10-15] VITALS (12 sets, daily range): BP systolic 106–161; PULSE 83–115; RESP 17–18; TEMP 96.1–98; O2SAT 94–99
[2022-10-15] MEDS: DEXTROSE 50% JECT 50 ML DISP.SYRIN IVP PRN ×3 (02:28→18:20)
[2022-10-15] MEDS: IPRATROPIUM BROM 0.5 MG/2.5 ML VIAL.NEB (ATROVENT) INH SCH ×6 (03:10→23:30)
[2022-10-15 05:14] LABS: BASOPHILS % (AUTO) 0.6 % (0.0-2.0); EOSINOPHILS # (AUTO) 0.2 K/uL (0.0-0.4); EOSINOPHILS % (AUTO) 3.4 % (0.0-4.0); HEMATOCRIT 39.4 % (36-48); HEMOGLOBIN 12.6 g/dL (12.0-16.0); LYMPHOCYTES % (AUTO) 18.4 % (20.5-51.5); MEAN CORPUSCULAR HEMOGLOBIN 32 pg (27-31); MEAN CORPUSCULAR HGB CONC 32 % (32-36); MEAN CORPUSCULAR VOLUME 101 fL (79.0-98.0); MONOCYTES # (AUTO) 0.6 K/uL (0.0-1.0); MONOCYTES % (AUTO) 11.5 % (1.7-9.3); NEUTROPHILS # (AUTO) 3.5 K/uL (1.8-7.7); NEUTROPHILS % (AUTO) 66.1 % (40.0-70.0); PLATELET COUNT (AUTO) 132 K/uL (130-430); RED BLOOD CELL COUNT(AUTO) 3.89 MIL/uL (4.2-6.2); RED CELL DISTRIBUTION WIDTH 15.2 % (9.0-15.0); WHITE BLOOD COUNT (AUTO) 5.2 K/uL (4.8-10.8)
[2022-10-15 05:51] LABS: ALANINE AMINOTRANSFERASE 10 U/L (12-78); ALBUMIN 1.6 g/dL (3.4-4.8); ANION GAP -1 (5-15); ASPARTATE AMINOTRANSFERASE 32 U/L (10-37); CALCIUM 7.7 mg/dL (8.4-11.0); CHLORIDE 96 mmol/L (98-107); CREATININE 1.08 mg/dL (0.55-1.30); POTASSIUM 3.7 mmol/L (3.5-5.1); SODIUM SERUM 138 mmol/L (136-145); TOTAL BILIRUBIN 1.1 mg/dL (0.0-1.0); TOTAL PROTEIN, SERUM 5.8 g/dL (6.4-8.3); UREA NITROGEN, BLOOD 19 mg/dL (8-21)
[2022-10-15 05:58] LABS: CARBON DIOXIDE 43 mmol/L (23-29); GLUCOSE 44 mg/dL (74-106)
[2022-10-15] MEDS: LEVOTHYROXINE SODIUM 0.1 MG TABLET PO SCH (06:29)
[2022-10-15] MEDS: PIPERACILLIN/TAZO 3.375/DEX-IS 50 ML IV SCH ×2 (07:58→12:57)
[2022-10-15] MEDS: FUROSEMIDE 20 MG/2 ML VIAL IVP SCH ×2 (09:36→21:24)
[2022-10-15] MEDS: DOCUSATE SODIUM 250 MG CAPSULE PO SCH ×2 (09:36→21:25)
[2022-10-15] MEDS: APIXABAN 2.5 MG TABLET PO SCH ×2 (09:38→21:25)
[2022-10-15] MEDS: cefTRIAXone 1 GM in D5W 50 ML IV SCH (18:25)
[2022-10-15] MEDS: acetaZOLAMIDE 250 MG TABLET (DIAMOX) PO SCH (21:24)
[2022-10-16] VITALS (13 sets, daily range): BP systolic 102–119; PULSE 59–105; RESP 17–20; TEMP 96.3–97.7; O2SAT 94–100
[2022-10-16] MEDS: IPRATROPIUM BROM 0.5 MG/2.5 ML VIAL.NEB (ATROVENT) INH SCH ×6 (02:15→23:59)
[2022-10-16] MEDS: LEVOTHYROXINE SODIUM 0.1 MG TABLET PO SCH (06:26)
[2022-10-16] MEDS: DEXTROSE 50% JECT 50 ML DISP.SYRIN IVP PRN ×4 (06:40→06:50)
[2022-10-16] MEDS: DOCUSATE SODIUM 250 MG CAPSULE PO SCH ×2 (08:37→21:38)
[2022-10-16] MEDS: acetaZOLAMIDE 250 MG TABLET (DIAMOX) PO SCH ×2 (08:38→21:46)
[2022-10-16] MEDS: APIXABAN 2.5 MG TABLET PO SCH ×2 (08:39→21:46)
[2022-10-16] MEDS: FUROSEMIDE 20 MG/2 ML VIAL IVP SCH ×2 (08:40→21:45)
[2022-10-16 14:36] LABS: ANION GAP -4 (5-15); CALCIUM 7.9 mg/dL (8.4-11.0); CHLORIDE 95 mmol/L (98-107); CREATININE 1.06 mg/dL (0.55-1.30); GLUCOSE 170 mg/dL (74-106); SODIUM SERUM 134 mmol/L (136-145); UREA NITROGEN, BLOOD 19 mg/dL (8-21)
[2022-10-16 14:39] LABS: CARBON DIOXIDE 43 mmol/L (23-29)
[2022-10-16] MEDS: cefTRIAXone 1 GM in D5W 50 ML IV SCH (17:35)
[2022-10-17] VITALS (10 sets, daily range): BP systolic 89–96; PULSE 93–103; RESP 16–19; TEMP 96.5–97; O2SAT 93–100
[2022-10-17] MEDS: IPRATROPIUM BROM 0.5 MG/2.5 ML VIAL.NEB (ATROVENT) INH SCH ×6 (03:54→23:19)
[2022-10-17] MEDS: LEVOTHYROXINE SODIUM 0.1 MG TABLET PO SCH (06:16)
[2022-10-17 08:06] LABS: CEA 5.3 ng/mL (0.0-4.7)
[2022-10-17] MEDS: FUROSEMIDE 20 MG/2 ML VIAL IVP SCH ×2 (09:00→21:48)
[2022-10-17] MEDS: APIXABAN 2.5 MG TABLET PO SCH ×2 (09:56→21:21)
[2022-10-17] MEDS: acetaZOLAMIDE 250 MG TABLET (DIAMOX) PO SCH ×2 (09:56→21:19)
[2022-10-17] MEDS: DOCUSATE SODIUM 250 MG CAPSULE PO SCH ×2 (10:00→21:19)
[2022-10-17 17:02] LABS: BASOPHILS % (AUTO) 0.3 % (0.0-2.0); EOSINOPHILS # (AUTO) 0.3 K/uL (0.0-0.4); EOSINOPHILS % (AUTO) 5.9 % (0.0-4.0); HEMATOCRIT 39.6 % (36-48); HEMOGLOBIN 12.4 g/dL (12.0-16.0); LYMPHOCYTES # (AUTO) 0.7 K/uL (1.0-5.5); LYMPHOCYTES % (AUTO) 13.6 % (20.5-51.5); MEAN CORPUSCULAR HEMOGLOBIN 32 pg (27-31); MEAN CORPUSCULAR HGB CONC 31 % (32-36); MEAN CORPUSCULAR VOLUME 102 fL (79.0-98.0); MONOCYTES # (AUTO) 0.7 K/uL (0.0-1.0); MONOCYTES % (AUTO) 13.8 % (1.7-9.3); NEUTROPHILS # (AUTO) 3.5 K/uL (1.8-7.7); NEUTROPHILS % (AUTO) 66.4 % (40.0-70.0); PLATELET COUNT (AUTO) 119 K/uL (130-430); RED BLOOD CELL COUNT(AUTO) 3.88 MIL/uL (4.2-6.2); RED CELL DISTRIBUTION WIDTH 15.3 % (9.0-15.0); WHITE BLOOD COUNT (AUTO) 5.3 K/uL (4.8-10.8)
[2022-10-17] MEDS ORDERED: ALBUMIN HUMAN 25% 200 ML IV ONE (17:15)
[2022-10-17 17:21] LABS: ALANINE AMINOTRANSFERASE 3 U/L (12-78); ALBUMIN 1.4 g/dL (3.4-4.8); ANION GAP -2 (5-15); ASPARTATE AMINOTRANSFERASE 40 U/L (10-37); CALCIUM 7.9 mg/dL (8.4-11.0); CHLORIDE 96 mmol/L (98-107); CREATININE 1.07 mg/dL (0.55-1.30); GLUCOSE 103 mg/dL (74-106); POTASSIUM 3.8 mmol/L (3.5-5.1); SODIUM SERUM 136 mmol/L (136-145); TOTAL BILIRUBIN 0.8 mg/dL (0.0-1.0); TOTAL PROTEIN, SERUM 5.5 g/dL (6.4-8.3); UREA NITROGEN, BLOOD 20 mg/dL (8-21)
[2022-10-17 17:28] LABS: CARBON DIOXIDE 42 mmol/L (23-29)
[2022-10-17] MEDS: cefTRIAXone 1 GM in D5W 50 ML IV SCH (17:29)
[2022-10-17] MEDS: NYSTATIN 15 GM TOPICAL POWDER TP SCH (21:19)
[2022-10-18] VITALS (12 sets, daily range): BP systolic 104–147; PULSE 92–101; RESP 16–19; TEMP 96.6–98.1; O2SAT 97–100
[2022-10-18] MEDS: IPRATROPIUM BROM 0.5 MG/2.5 ML VIAL.NEB (ATROVENT) INH SCH ×6 (03:03→23:34)
[2022-10-18] MEDS: LEVOTHYROXINE SODIUM 0.1 MG TABLET PO SCH (06:02)
[2022-10-18] MEDS: DOCUSATE SODIUM 250 MG CAPSULE PO SCH ×2 (08:53→21:00)
[2022-10-18] MEDS: acetaZOLAMIDE 250 MG TABLET (DIAMOX) PO SCH ×2 (08:53→21:00)
[2022-10-18] MEDS: APIXABAN 2.5 MG TABLET PO SCH ×2 (08:56→21:00)
[2022-10-18] MEDS: NYSTATIN 15 GM TOPICAL POWDER TP SCH ×2 (09:22→21:01)
[2022-10-18] MEDS: BALSAM PERU/CASTOR OIL 56.7 GM OINT...G. TP SCH (09:23)
[2022-10-18] MEDS: FUROSEMIDE 20 MG/2 ML VIAL IVP SCH ×2 (09:33→21:01)
[2022-10-18] MEDS ORDERED: IOHEXOL 350 mgI/mL, 150 ML INFUS..BTL IV ONE (15:04)
[2022-10-18] MEDS ORDERED: ALBUMIN HUMAN 25% 200 ML IV ONE (16:15)
[2022-10-18] MEDS: cefTRIAXone 1 GM in D5W 50 ML IV SCH (18:13)
[2022-10-19] VITALS (10 sets, daily range): BP systolic 108–135; PULSE 85–97; RESP 18–20; TEMP 97–98.4; O2SAT 96–100
[2022-10-19] MEDS: IPRATROPIUM BROM 0.5 MG/2.5 ML VIAL.NEB (ATROVENT) INH SCH ×5 (05:45→19:22)
[2022-10-19] MEDS: LEVOTHYROXINE SODIUM 0.1 MG TABLET PO SCH (06:11)
[2022-10-19 06:29] LABS: BASOPHILS % (AUTO) 0.5 % (0.0-2.0); EOSINOPHILS # (AUTO) 0.3 K/uL (0.0-0.4); EOSINOPHILS % (AUTO) 6.3 % (0.0-4.0); HEMATOCRIT 34.1 % (36-48); HEMOGLOBIN 10.8 g/dL (12.0-16.0); LYMPHOCYTES # (AUTO) 0.7 K/uL (1.0-5.5); LYMPHOCYTES % (AUTO) 16.9 % (20.5-51.5); MEAN CORPUSCULAR HEMOGLOBIN 32 pg (27-31); MEAN CORPUSCULAR HGB CONC 32 % (32-36); MEAN CORPUSCULAR VOLUME 101 fL (79.0-98.0); MONOCYTES # (AUTO) 0.4 K/uL (0.0-1.0); MONOCYTES % (AUTO) 10.5 % (1.7-9.3); NEUTROPHILS # (AUTO) 2.6 K/uL (1.8-7.7); NEUTROPHILS % (AUTO) 65.8 % (40.0-70.0); PLATELET COUNT (AUTO) 143 K/uL (130-430); RED BLOOD CELL COUNT(AUTO) 3.36 MIL/uL (4.2-6.2); RED CELL DISTRIBUTION WIDTH 15.3 % (9.0-15.0)
[2022-10-19 07:25] LABS: ALANINE AMINOTRANSFERASE 11 U/L (12-78); ALBUMIN 2.6 g/dL (3.4-4.8); ANION GAP 2 (5-15); ASPARTATE AMINOTRANSFERASE 30 U/L (10-37); CALCIUM 8.3 mg/dL (8.4-11.0); CHLORIDE 96 mmol/L (98-107); CREATININE 0.87 mg/dL (0.55-1.30); GLUCOSE 78 mg/dL (74-106); SODIUM SERUM 138 mmol/L (136-145); TOTAL BILIRUBIN 0.9 mg/dL (0.0-1.0); TOTAL PROTEIN, SERUM 5.7 g/dL (6.4-8.3); UREA NITROGEN, BLOOD 17 mg/dL (8-21)
[2022-10-19 07:27] LABS: CARBON DIOXIDE 40 mmol/L (23-29)
[2022-10-19] MEDS ORDERED: POTASSIUM CHLORIDE 20 MEQ TAB.PRT.SR PO ONE ×2 (08:15→15:15)
[2022-10-19] MEDS: APIXABAN 2.5 MG TABLET PO SCH ×2 (08:55→20:27)
[2022-10-19] MEDS: DOCUSATE SODIUM 250 MG CAPSULE PO SCH ×2 (08:56→20:27)
[2022-10-19] MEDS: acetaZOLAMIDE 250 MG TABLET (DIAMOX) PO SCH ×2 (08:56→20:27)
[2022-10-19] MEDS: NYSTATIN 15 GM TOPICAL POWDER TP SCH ×2 (08:57→20:23)
[2022-10-19] MEDS: BALSAM PERU/CASTOR OIL 56.7 GM OINT...G. TP SCH (08:57)
[2022-10-19] MEDS ORDERED: POTASSIUM CHLORIDE 10 MEQ TAB.PRT.SR PO ONE (09:00)
[2022-10-19] MEDS ORDERED: FUROSEMIDE 40 MG TABLET PO SCH (09:00)
[2022-10-19] MEDS ORDERED: POTA-197 PO (14:10)
[2022-10-19] MEDS ORDERED: DIA250 PO (14:10)
[2022-10-19] MEDS ORDERED: FURO-150 PO (14:10)
[2022-10-19] MEDS ORDERED: FURO-149 PO (14:10)
[2022-10-19] MEDS ORDERED: IPRA3AMP9 INH (14:10)
[2022-10-19] MEDS ORDERED: LEVO100T PO (14:10)
[2022-10-19] MEDS ORDERED: CEPH250C PO (14:25)
[2022-10-19] MEDS ORDERED: POTASSIUM CHLORIDE 20 MEQ/PKT PACKET PO ONE (15:15)
== END 2022-10-19 21:15 | disposition home health service (06) | DRG 291 ==
LOC: SED 21:09 → STU 23:33 → SMU 10-18 10:28
PROVIDERS: ADMIT Internal Medicine; ATTEND Internal Medicine
PROC: 5A0935A Assistance with Respiratory Ventilation, Less than 24 Consecutive Hours, High Flow/Velocity Cannula (ICD-10-PCS; principal; 2022-10-12)
DX: I11.0 Hypertensive heart disease with heart failure (principal); E43 Unspecified severe protein-calorie malnutrition; J96.01 Acute respiratory failure with hypoxia; I50.43 Acute on chronic combined systolic (congestive) and diastolic (congestive) heart failure; J44.1 Chronic obstructive pulmonary disease with (acute) exacerbation; I48.20 Chronic atrial fibrillation, unspecified; J98.11 Atelectasis; J90 Pleural effusion, not elsewhere classified; N39.0 Urinary tract infection, site not specified; Z68.42 Body mass index [BMI] 45.0-49.9, adult; L97.819 Non-pressure chronic ulcer of other part of right lower leg with unspecified severity; L97.829 Non-pressure chronic ulcer of other part of left lower leg with unspecified severity; E03.9 Hypothyroidism, unspecified; J44.9 Chronic obstructive pulmonary disease, unspecified; I27.81 Cor pulmonale (chronic); K80.20 Calculus of gallbladder without cholecystitis without obstruction; K57.90 Diverticulosis of intestine, part unspecified, without perforation or abscess without bleeding; Z20.822 Contact with and (suspected) exposure to COVID-19; F44.4 Conversion disorder with motor symptom or deficit; E11.649 Type 2 diabetes mellitus with hypoglycemia without coma; N20.0 Calculus of kidney; I95.9 Hypotension, unspecified; E11.42 Type 2 diabetes mellitus with diabetic polyneuropathy; I87.8 Other specified disorders of veins; E87.6 Hypokalemia; I27.29 Other secondary pulmonary hypertension; Z74.01 Bed confinement status; Z79.01 Long term (current) use of anticoagulants; Z79.82 Long term (current) use of aspirin; Z87.440 Personal history of urinary (tract) infections
CPT/HCPCS: 36415; 71045; 74170-TC; 76376; 80048; 80053; 80061; 81000; 82140; 82378; 82575; 82962; 83037; 83525; 83735; 83880; 84100; 84132; 84156; 84439; 84443; 84484; 85025; 86301; 87086; 93005; 94640; 94664; 94760; 96365; 96375; 97110-GP; 97116-GP; 97163-GP; 97530-GP; 99285; G0378; J0696; J1815; J1940; J1956; J2543; J7030; J7050; J7060; Q9967